=== PATIENT | female | born 1980 | race Caucasian/White ===

== ENCOUNTER 2017-09-17 00:50 | Emergency (ER) | payer SELFPAY ==
[2017-09-17] MEDS ORDERED: diPHENhydraMINE IV* 25 MG in NS 0.9% 50 ML* 50 ML IVPB ONE (02:28)
[2017-09-17] MEDS ORDERED: NS 0.9% 1000 ML* 1,000 ML IV ONE (02:28)
[2017-09-17] MEDS ORDERED: Metoclopramide IV* 5 MG/ML 2 ML VIAL IV ONE (02:28)
[2017-09-17] MEDS ORDERED: diPHENhydraMINE IV* 50 MG/ML 1 ml VIAL (BENADRYL) ONE (02:42)
--- NOTE | 2017-09-17 03:23 | ED ---
Headache - HPI Summary HPI Summary: A 37 y/o female QUINTEN presents to ED c/o migraine headache. According to the patient, she exhibited a migraine coupled with vomiting that started this evening. The migraine headache reaches 8/10 in severity. The patient noted that she has a history of migraine headaches and this feels like a typical headache she gets often. Pt denies any N/V, however she has mild photophobia. She additionally noted that she has come to the ED before for the same symptoms. She stated that normally in the ED she received Benadryl to alleviate symptoms. The patient lives in the [facility] with her who is also being evaluated for bite lópez and a blister. Pt is unsure of bed bugs, however noted a bit on her right foot. No known allergies. - History Of Current Complaint Chief Complaint: EDHeadache Stated Complaint: HEADACHE Time Seen by Provider: 09/17/17 02:05 Hx Obtained From: Patient Onset/Duration: Sudden Onset, Started hours ago - Evening, Still Present Currently Pain Is: Current Pain Scale(0-10)= - 8/10, Severe Timing: Constant Character: Typical Headache, Migraine Radiates to: NO Aggravating Factor: Nothing Allevating Factors: Nothing Associated Signs And Symptoms: Other (Noted In Comments) - Mild Photophobia - Allergies/Home Medications Allergies/Adverse Reactions: Allergies Allergy/AdvReac Type Severity Reaction Status Date / Time No Known Allergies Allergy Verified 09/17/17 00:53 Home Medications: Home Medications Gabapentin 600 mg PO QID 09/17/17 [History Confirmed 09/17/17] PARoxetine HCL TAB* [Paxil TAB*] 40 mg PO DAILY 09/17/17 [History Confirmed ] PMH/Surg Hx/FS Hx/Imm Hx Endocrine/Hematology History: Denies: Hx Diabetes Cardiovascular History: Denies: Hx Hypertension Infectious Disease History: No Infectious Disease History: Denies: Traveled Outside the [place] in Last 30 Days - Family History Known Family History: Negative: Hypertension, Diabetes - Social History Alcohol Use: Occasionally Substance Use Type: Reports: None Smoking Status (MU): Heavy Every Day Tobacco Smoker Review of Systems Negative: Fever Positive: Photophobia - MILD Negative: Vomiting, Nausea Positive: Headache - MIGRAINE HEADACHE All Other Systems Reviewed And Are Negative: Yes Physical Exam - Summary Physical Exam Summary: GENERAL: Patient is a well developed and nourished female who is lying comfortable in the stretcher. Patient is not in any acute respiratory distress. HEAD AND FACE: Normocephalic EYES: PERRLA, EOMI x 2. EARS: Hearing grossly intact. MOUTH: Oropharynx within normal limits. NECK: Supple, trachea is midline, no adenopathy, no JVD, no carotid bruit. CHEST: Symmetric, no tenderness at palpation LUNGS: Clear to auscultation bilaterally. No wheezing or crackles. CVS: Regular rate and rhythm, S1 and S2 present, no murmurs or gallops appreciated. ABDOMEN: Soft, non-tender. Bowel sounds are normal. No abdominal abnormal pulsations. EXTREMITIES: Full ROM in all major joints, no edema, no cyanosis or clubbing. NEURO: Alert and oriented x 3. No acute neurological deficits. Speech is normal and follows commands. SKIN: Dry and warm Neuro exam extended: Cranial nerves II-XII grossly intact, no dysmetria finger to nose, nml heel to andersen Triage Information Reviewed: Yes Vital Signs On Initial Exam: Initial Vitals Temp Pulse Resp BP Pulse Ox 98.3 F 95 16 127/89 98 09/17/17 00:51 09/17/17 00:51 09/17/17 00:51 09/17/17 00:51 09/17/17 00:51 Vital Signs Reviewed: Yes Diagnostics - Vital Signs Vital Signs Temp Pulse Resp BP Pulse Ox 09/17/17 03:03 95 100 09/17/17 02:58 94 133/97 98 09/17/17 02:28 121/84 09/17/17 02:00 68 100 09/17/17 01:58 69 131/85 100 09/17/17 01:28 93 113/97 100 09/17/17 01:00 91 100 09/17/17 00:59 87 100 09/17/17 00:58 86 130/86 100 09/17/17 00:51 98.3 F 95 16 127/89 98 - Laboratory Lab Statement: Any lab studies that have been ordered have been reviewed, and results considered in the medical decision making process. Headache Course/Dx - Course Course Of Treatment: A 37 y/o female QUINTEN presents to ED c/o migraine headache. According to the patient, she exhibited a migraine coupled with vomiting that started this evening. The migraine headache reaches 8/10 in severity. No laboratory scans were done. In the ED course, the patient recieved Benadryl, Reglan and IV fluids. Patient will be discharged with a diagnosis of headache. Pt is to follow up with PCP in 2-3 days. Pt is agreeable with this plan. - Diagnoses Provider Diagnoses: Headache Discharge - Sign-Out/Discharge Documenting (check all that apply): Patient Departure - DISCHARGE - Discharge Plan Condition: Stable Disposition: HOME Patient Education Materials: Migraine Headache (ED) Referrals: No Primary Care Phys,NOPCP [Primary Care Provider] - [facility]Outside] - 2 Days (FOLLOW UP WITH PRIMARY CARE PHYSICIAN IN 2-3 DAYS.) Additional Instructions: RETURN TO ED FOR ANY NEW OR WORSENING SYMPTOMS. - Billing Disposition and Condition Condition: STABLE Disposition: Home
[2017-09-17 04:09] VITALS: BP 103/76
== END 2017-09-17 04:12 | disposition home or self-care (01) ==
LOC: ED 00:50
DX: R51 Headache (principal); H53.149 Visual discomfort, unspecified; F17.200 Nicotine dependence, unspecified, uncomplicated
CPT/HCPCS: 96374; 96375; 99283; J1200; J2765

== ENCOUNTER 2018-04-29 21:46 | Inpatient (IN) | payer OTHER ==
[2018-04-29] MEDS ORDERED: Succinylcholine* 20 MG/ML 10 ML VIAL ONE (21:50)
--- NOTE | 2018-04-29 21:56 | ED ---
Substance Abuse/Use - HPI Summary HPI Summary: LEVEL 5 CAVEAT: HPI LIMITED DUE TO PT CONDITION, NON-RESPONSIVE. Pt is a 38 y/o F brought in by ambulance presents for ETOH poisoning. Pt is non- responsive at bedside. Per EMS: They were called for a cardiac arrest, but upon arrival, learned it was ETOH poisoning. They found pt non-responsive but breathing. En route, she stopped breathing and was manually given air. She has a Hx of ETOH abuse. EMS was told she had a bunch of shots and beer. At the scene , her boyfriend denied that the pt had any drug use. Pt given Versed, Etomidate en route. Pupils were approx. 5mm. She was not given Narcan. Associated sx: vomiting. ED provider met EMS in room upon arrival to ED. - History Of Current Complaint Stated Complaint: UNRESPONSIVE Hx Obtained From: EMS Ingestion History: Type/Name Of Drug - ETOH: beer, liquor Overdose Characteristics: Oral - Allergies/Home Medications Allergies/Adverse Reactions: Allergies Allergy/AdvReac Type Severity Reaction Status Date / Time No Known Allergies Allergy Verified 09/17/17 00:53 PMH/Surg Hx/FS Hx/Imm Hx Previously Healthy: No - LEVEL 5 CAVEAT: PMHx LIMITED DUE TO PT CONDITION, NON- RESPONSIVE. Endocrine/Hematology History: Denies: Hx Diabetes Cardiovascular History: Denies: Hx Hypertension - Family History Known Family History: Negative: Hypertension, Diabetes - Social History Occupation: Unemployed Alcohol Use: Occasionally Hx Substance Use: No Substance Use Type: Reports: None Hx Tobacco Use: Yes Smoking Status (MU): Heavy Every Day Tobacco Smoker Review of Systems - ROS Summary Review of Systems Summary: LEVEL 5 CAVEAT: ROS LIMITED DUE TO PT CONDITION, NON-RESPONSIVE. Positive: Vomiting All Other Systems Reviewed And Are Negative: No Physical Exam - Summary Physical Exam Summary: LEVEL 5 CAVEAT: PE LIMITED DUE TO PT CONDITION, NON-RESPONSIVE. Appearance: Attended unresponsive woman Skin: Warm, dry, no obvious rash Eyes: sclera anicteric, no conjunctival pallor ENT: mucous membranes moist Neck: deferred Respiratory: Nearly apneic, ineffective respirations Cardiovascular: Appears well perfused, pulses are nml Abdomen: deferred Musculoskeletal: Moving all 4 extremities without obvious discomfort Neurological: Mentation is normal Triage Information Reviewed: Yes Vital Signs Reviewed: Yes Procedures - Intubation Time of Intubation: 22:15 Intubation Method: orotracheal Tube Size (cm): 7.5 Medications: Succinylcholine - 50 mg Intubation Complications: no complications Post Intubation Xray: Yes Progress/Xray Impression: Looks good Diagnostics - Laboratory Result Diagrams: 04/29/18 22:30 04/29/18 22:30 Lab Statement: Any lab studies that have been ordered have been reviewed, and results considered in the medical decision making process. - Radiology CXR s/p intubation Radiology Interpretation Completed By: ED Physician Summary of Radiographic Findings: NT tube looks good. Lungs are clear. - EKG 2217 Cardiac Rate: NL - 97 bpm EKG Rhythm: Sinus Rhythm Summary of EKG Findings: NSR at 97 BPM, P waves, QRS complex, and T waves are within normal limits, T waves and intervals are normal, no ischemic changes. Course/Dx - Course Course Of Treatment: Pt is a 38 y/o F with hx of ETOH abuse brought in by ambulance for ETOH poisoning. Pt is non-responsive at bedside. Per EMS: They were called for a cardiac arrest, but upon arrival, learned it was ETOH poisoning. They found pt non-responsive but breathing. En route, she stopped breathing. EMS was told she had a bunch of shots and beer. At the scene, her boyfriend denied pt drug use. Pt given Versed, Etomidate en route. Pupils were approx. 5mm. She was not given Narcan. Associated sx: vomiting. Given succinylcholine 50mg, intubated with 7.5 tube. No complications. Post intubation CXR shows proper placement, lungs clear. Consulted with Dr. English, hospitalist, who will admit pt. - Diagnoses Provider Diagnoses: Respiratory failure, Alcohol intoxication - Physician Notifications Discussed Care Of Patient With: Lorna English - hospitalist Time Discussed With Above Provider: 22:15 Instructed by Provider To: Admit As Inpatient - Critical Care Time Critical Care Time: 30-74 min Discharge - Sign-Out/Discharge Documenting (check all that apply): Patient Departure - ADMIT/ICU Patient Received Moderate/Deep Sedation with Procedure: Yes - Discharge Plan Condition: Guarded Disposition: ADMITTED TO [facility] - Billing Disposition and Condition Condition: GUARDED Disposition: Admitted to [facility] - Attestation Statements Document Initiated by Scribe: Yes Documenting Scribe: SooYoung VanDeMark Provider For Whom Scribe is Documenting (Include Credential): Dr. Deon Shah MD Scribe Attestation: IChidi scribed for Dr. Deon Shah MD on 04/30/18 at 0056. Scribe Documentation Reviewed: Yes Provider Attestation: The documentation as recorded by the monika, Chidi Dalton accurately reflects the service I personally performed and the decisions made by me, Dr. Deon Shah MD Status of Scribe Document: Viewed Procedure Note: Sedation - Sedation/Analgesia Procedure: Intubation Informed Consent Obtained: Emergency Plan for Sedation: Moderate Sedation
[2018-04-29] MEDS ORDERED: Succinylcholine* 20 MG/ML 10 ML VIAL IV ONE (22:03)
[2018-04-29] MEDS ORDERED: Midazolam* 1 MG/ML 5 ML VIAL (5 MG) SLOW PUSH ONE (22:13)
[2018-04-29] MEDS ORDERED: Midazolam concentrated* 5 MG/ML 1 ml VIAL ONE (22:14)
[2018-04-29] MEDS ORDERED: Midazolam IV for DRIP* 100 MG in NS 0.9% 100 ML* 80 ML IV SCH (22:30)
[2018-04-29 22:40] LABS: ABS Basophils 0.1 10^3/ul (0-0.2); ABS Eosinophils 0.1 10^3/ul (0-0.6); ABS Lymphocytes 2.3 10^3/ul (1.0-4.8); ABS Monocytes 0.5 10^3/ul (0-0.8); ABS Neutrophils 4.1 10^3/ul (1.5-7.7); ABS Nucleated RBC 0 10^3/ul; Eosinophil % 1.9 %; Hematocrit 35 % (35-47); Hemoglobin 11.3 g/dl (12.0-16.0); Mean Corpuscular HGB Conc 33 g/dl (31-36); Mean Corpuscular Hemoglobin 31 pg (27-31); Mean Corpuscular Volume 95 fL (80-97); Mean Platelet Volume 8.3 fL (7.4-10.4); Nucleated Red Blood Cells % 0; Platelet Count 238 10^3/ul (150-450); Red Blood Count 3.65 10^6/ul (4.00-5.40); Red Cell Distribution Width 14 % (10.5-15); White Blood Count 7.1 10^3/ul (3.5-10.8)
[2018-04-29] MEDS ORDERED: MIDAZOLAM IV ONE (22:55)
[2018-04-29] MEDS ORDERED: Midazolam concentrated* 5 MG/ML 1 ml VIAL IV ONE (22:56)
[2018-04-29 22:58] LABS: ALT 15 U/L (7-52); AST 15 U/L (13-39); Albumin 3.7 g/dL (3.2-5.2); Albumin/Globulin Ratio 1.5 (1-3); Alkaline Phosphatase 48 U/L (34-104); Anion Gap 4 mmol/L (2-11); BUN/Creatinine Ratio 15.3 (8-20); Blood Urea Nitrogen 9 mg/dL (6-24); CO2 Carbon Dioxide 26 mmol/L (22-32); Calcium 7.5 mg/dL (8.6-10.3); Chloride 110 mmol/L (101-111); EGFR African American 139.6 (>60); EGFR Non-African American 115.3 (>60); Globulin 2.5 g/dL (2-4); Glucose 93 mg/dL (70-100); Potassium 4.1 mmol/L (3.5-5.0); Sodium 140 mmol/L (135-145); Total Protein 6.2 g/dL (6.4-8.9)
[2018-04-29 23:04] LABS: Acetaminophen < 15 mcg/mL; Alcohol 236 mg/dL (<10); HCG Pregnancy < 0.60 mIU/mL
[2018-04-29] MEDS ORDERED: Thiamine IV* 100 MG, Folic Acid IV* 1 MG, Multiple Vitamin IV ADULT* 10 ML in NS 0.9% 1... IV ONE (23:13)
[2018-04-29] MEDS ORDERED: Albuterol 2.5 MG/3 ML NEB.SOL* (0.083%) INH PRN (23:16)
[2018-04-29] MEDS ORDERED: Enoxaparin(*) 40 MG/0.4 ML SYR SUBCUT SCH (23:45)
[2018-04-30] MEDS ORDERED: Propofol* 100 ML ONE (00:22)
[2018-04-30] MEDS ORDERED: Propofol* 100 ML IV SCH (00:25)
[2018-04-30] MEDS ORDERED: D5NS 0.9% 1000 ML BAG* 1,000 ML IV SCH (01:00)
[2018-04-30 01:31] LABS: Urine Appearance Clear; Urine Bilirubin Negative (Negative); Urine Blood Negative (Negative); Urine Color Yellow; Urine Glucose Negative (Negative); Urine Ketones Negative (Negative); Urine Nitrite Negative (Negative); Urine Protein Negative (Negative); Urine Specific Gravity 1.017 (1.010-1.030); Urine Urobilinogen Negative (Negative)
[2018-04-30 01:40] LABS: Barbiturates Urine Screen None Detected (None Detect); Benzodiazepine Urine Screen Presumptive Positive (None Detect); Urine Cannabinoids Screen None Detected (None Detect)
--- NOTE | 2018-04-30 04:39 | PN ---
Hospitalist Progress Note Date of Service: 04/30/18 Called by CARBIDER that Krista was alert and following commands on max dose propofol drip. She was on 25% FiO2 and oxygenating well. RT extubated her to 2L O2 and she is awake, alert, following all commands, and appropriate. She denies any extra gabapentin today or any other ingestion, but does admit to drinking "too much." She did not recall any other events from the evening.
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
[2018-04-30] MEDS ORDERED: Acetaminophen TAB* 325 MG PO PRN (06:27)
[2018-04-30] MEDS ORDERED: NS 0.9% 1000 ML** 1,000 ML IV SCH (09:00)
[2018-04-30 15:01] VITALS: BP 154/91
--- NOTE | 2018-04-30 22:30 | DS ---
CC: [facility] * DISCHARGE SUMMARY: DATE OF ADMISSION: 04/29/18 DATE OF DISCHARGE: 04/30/18 PRIMARY CARE PROVIDER: Elbert Christina. MY ATTENDING WHILE IN THE HOSPITAL: Dr. Adriana Shaffer.* (DICTATED BY YA GANDHI) PRIMARY DISCHARGE DIAGNOSIS: Respiratory depression from alcohol requiring intubation, now resolved. SECONDARY DISCHARGE DIAGNOSES: 1. Asthma. 2. History of opioid addiction. 3. Depression. 4. Possible seizure disorder. STUDIES DONE WHILE IN THE HOSPITAL: Chest x-ray from 04/29/18 read as endotracheal tube was noted with the tip in the trachea between the clavicles and the vita. Brain CT from 04/29/18 read as no acute intracranial pathology. MEDICATIONS AT DISCHARGE: 1. Paroxetine 40 mg p.o. daily. 2. Gabapentin 600 mg p.o. four times a day. 3. Tylenol 650 mg p.o. q.6 hours as needed. New medications at discharge: Tylenol. Medications discontinued at discharge: None. HOSPITAL COURSE: This is a brief summary of the patient's presentation. For more details, please see history and physical from Dr. Lorna English on . In brief, the patient is a 38-year-old female with past medical history significant for the above, who has been having significant social issues due to conflict with her brother, who she lives with. The patient, in the evening of 04/29/18, was drinking a large amount but not an abnormal amount for her, though she was not drinking on a daily basis. The patient was taking gabapentin due to concern for history of opioid addiction. The patient was found to be unresponsive after drinking this amount. The patient was brought to the emergency department by her . The patient was not believed to have taken too much of her gabapentin, but unclear the amount she took. The patient had no other recent medical issues. The patient had had a cold for several days before her admission consisting of cough and congestion. The patient was intubated in the emergency department due to unresponsiveness and respiratory depression. The patient was admitted to the ICU. The patient had an alcohol level of 236 on admission. The patient had a urine drug screen, which was positive only for benzodiazepines after she received Versed for intubation. The patient was able to wake up while still on a propofol drip and was extubated at approximately 6 a.m. The patient's only complaints were a sore throat and persistent cough from her intubation. The patient essentially returned to her baseline by the mid morning. The patient had no place to go, so the patient was seen in consultation by Social Work, who arranged for her to [facility] to the [facility]. The patient was stable and amenable for discharge on 04/30/18. PHYSICAL EXAMINATION AT DISCHARGE: General: The patient is a 38-year-old female, who appears her stated age, sitting comfortably in bed, in no acute distress. Vital Signs: Temperature 99.4, pulse rate 103, respiratory rate 17, oxygen saturation 100% on room air, blood pressure 154/91. HEENT: atraumatic. Sclerae anicteric. No conjunctival injection. Nasal mucosa moist. Oral mucosa moist. No oropharyngeal erythema, discharge, or exudate. Neck: Supple , nontender. No lymphadenopathy. No carotid bruit auscultated. No JVD. Cardiac: Regular rate and rhythm. No clicks, murmurs, gallops, or rubs. Pulses are 2+ in the bilateral dorsalis pedis, posterior tibial, and radial areas. Respiratory: Clear to auscultation bilaterally. No wheezes, rales, or rhonchi. Good air exchange bilaterally. Abdomen: Soft, nontender, nondistended. Bowel sounds present and normoactive in all 4 quadrants. No hepatospleno-megaly. No abdominal bruits auscultated. No hepatojugular reflux. Genitourinary: No suprapubic or CVA tenderness. Skin: Clean, dry, and intact. No rash. Neurologic: Cranial nerves II through XII intact. No focal deficits. Alert and oriented x3. Psychiatric: Pleasant and cooperative. DISCHARGE PLAN: The patient will be discharged home. The patient may continue on her gabapentin. The patient has been counseled not to drink as much as she had that night. The patient should follow up with Psychiatric Health. The patient should follow up with her primary care provider within 1 week. If the patient is unable to follow up with her primary care provider, the patient should follow up with [facility]. The patient should have a regular unrestricted diet and engage in activities as tolerated. If the patient has any seizure-like activity, the patient should follow up with a neurologist. The patient should avoid abruptly discontinuing her gabapentin. TIME SPENT: Approximately 60 minutes spent in the discharge of this patient, 45 of which was spent [id number] with the patient obtaining history and physical and discussing treatment plan. YA GANDHI [id number]/[facility] #: [id number] EULOGIO
== END 2018-04-30 14:38 | disposition home or self-care (01) | DRG 133 ==
LOC: ED 21:46 → ICU 23:16 → OBSVTOIN 04-30 13:03 → UNDODISIN 04-30 14:38
PROVIDERS: ADMIT Internal Medicine; ATTEND Hospitalist
PROC: 0BH17EZ Insertion of Endotracheal Airway into Trachea, Via Natural or Artificial Opening (ICD-10-PCS; principal; 2018-04-29)
PROC: 5A1935Z Respiratory Ventilation, Less than 24 Consecutive Hours (ICD-10-PCS; 2018-04-29)
PROC: 0BP1XDZ Removal of Intraluminal Device from Trachea, External Approach (ICD-10-PCS; 2018-04-30)
DX: J96.01 Acute respiratory failure with hypoxia (principal); T51.91XA Toxic effect of unspecified alcohol, accidental (unintentional), initial encounter; F10.129 Alcohol abuse with intoxication, unspecified; J45.909 Unspecified asthma, uncomplicated; Y90.7 Blood alcohol level of 200-239 mg/100 ml; F17.210 Nicotine dependence, cigarettes, uncomplicated; G40.909 Epilepsy, unspecified, not intractable, without status epilepticus; T42.6X1A Poisoning by other antiepileptic and sedative-hypnotic drugs, accidental (unintentional), initial encounter; F32.9 Major depressive disorder, single episode, unspecified; Z81.8 Family history of other mental and behavioral disorders; Y92.009 Unspecified place in unspecified non-institutional (private) residence as the place of occurrence of the external cause
CPT/HCPCS: 36415; 70450; 71045; 80053; 80307; 80320; 80329; 81003; 82803; 83605; 84702; 85025; 87641; 93005; 94003; 99285; A9270-GY; G0378; G0480; J0330; J1650; J2250; J2704; J3411